=== PATIENT | female | born 1970 | race Caucasian/White ===

== ENCOUNTER 2022-08-08 08:25 | Emergency (ER) | payer BC ==
[2022-08-08 08:38] VITALS: TEMP 97.7
[2022-08-08] MEDS ORDERED: SODIUM CHLORIDE 0.9% 500 ML 500 ML IV STA (09:06)
[2022-08-08] MEDS ORDERED: SODIUM CHLORIDE 0.9% 1,000 ML IV STA (09:06)
[2022-08-08] MEDS ORDERED: HYDROmorphone 0.5 MG/0.5 ML SYRINGE IVP STA (09:06)
[2022-08-08] MEDS ORDERED: ONDANSETRON 4 MG/2 ML VIAL IVP STA (09:06)
[2022-08-08 09:57] LABS: Appearance,Urine Cloudy (Clear); Bacteria,Urine Rare /hpf; Bilirubin,Urine Negative (Negative); Blood,Urine Negative (Negative); Color,Urine Colorless; Glucose,Urine (UA) Negative (Negative); Ketones,Urine Negative (Negative); Leukocyte Esterase,Urine Negative (Negative); Nitrite,Urine Negative (Negative); Protein,Urine Negative (Negative); Specific Gravity,Urine 1.005 (1.001-1.035); Squamous Epithelial Cell,Urine 2 /hpf (0-4); Urobilinogen,Urine <2.0 mg/dL (<2.0); WBC,Urine <1 /hpf (0-5)
[2022-08-08 10:49] LABS: Basophils % (A) 0 %; Eosinophils # (A) 0.1 k/uL (0-0.7); Eosinophils % (A) 2 %; HCT 39.7 % (34.0-46.0); HGB 12.8 gm/dL (11.4-16.0); Lymphocytes # (A) 1.6 k/uL (1.0-4.8); Lymphocytes % (A) 24 %; MCH 27.9 pg (25.0-35.0); MCHC 32.2 g/dL (31.0-37.0); MCV 86.8 fL (80.0-100.0); Mean Platelet Volume 7.7; Monocytes # (A) 0.3 k/uL (0-1.0); Monocytes % (A) 4 %; Neutrophils # (A) 4.7 k/uL (1.3-7.7); Neutrophils % (A) 68 %; Platelet Count 372 k/uL (150-450); RBC 4.57 m/uL (3.80-5.40); RDW 14.4 % (11.5-15.5); WBC 6.9 k/uL (3.8-10.6)
[2022-08-08 11:18] LABS: ALT 55 U/L (4-34); AST 39 U/L (14-36); African American GFR (CKD) >90 (>60 ml/min/1.73 sqM); Albumin 4.3 g/dL (3.5-5.0); Alkaline Phosphatase 133 U/L (38-126); Amylase 74 U/L (30-110); Anion Gap 8 mmol/L; Blood Urea Nitrogen 13 mg/dL (7-17); Calcium 9.4 mg/dL (8.4-10.2); Carbon Dioxide 26 mmol/L (22-30); Chloride 102 mmol/L (98-107); Glucose 83 mg/dL (74-99); Lipase 61 U/L (23-300); Non-African American GFR(CKD) >90 (>60 ml/min/1.73 sqM); Potassium 4.4 mmol/L (3.5-5.1); Sodium 136 mmol/L (137-145); Total Bilirubin 0.3 mg/dL (0.2-1.3); Total Protein 7.2 g/dL (6.3-8.2)
--- NOTE | 2022-08-08 11:40 | ED ---
Abdominal Pain HPI - General Chief Complaint: Abdominal Pain Stated Complaint: back/abd pain Time Seen by Provider: 08/08/22 08:43 Source: patient, RN notes reviewed Mode of arrival: ambulatory Limitations: no limitations - History of Present Illness Initial Comments: 53-year-old female presents emergency Department with multiple complaints. Patient states she was diagnosed with recent covid 19 and was started on Paxil. Patient is answering past which she started developing abdominal, back pain, flank pain, intermittent blurry vision, nausea. Patient states she is concerned that she's had problems with her kidneys in the past. Patient denies any dysuria. Patient's had no fever. Patient states her congestion, cough is cleared out of she has no shortness of breath. Patient does have a history of chronic pancreatitis and is unsure this is causing symptoms. - Related Data Allergies Allergy/AdvReac Type Severity Reaction Status Date / Time meperidine [From Demerol] Allergy Rash/Hives Verified 08/08/22 08:39 Review of Systems ROS Statement: Those systems with pertinent positive or pertinent negative responses have been documented in the HPI. ROS Other: All systems not noted in ROS Statement are negative. Past Medical History Past Medical History: No Reported History History of Any Multi-Drug Resistant Organisms: None Reported Past Surgical History: Section, Cholecystectomy, Hysterectomy, Orthopedic Surgery Additional Past Surgical History / Comment(s): Gastic Bypass Past Psychological History: No Psychological Hx Reported Smoking Status: Never smoker Past Alcohol Use History: None Reported Past Drug Use History: None Reported General Exam Limitations: no limitations General appearance: alert, in no apparent distress Head exam: Present: atraumatic, normocephalic, normal inspection Eye exam: Present: normal appearance, PERRL, EOMI. Absent: scleral icterus, conjunctival injection, periorbital swelling ENT exam: Present: normal exam, normal oropharynx, mucous membranes moist Neck exam: Present: normal inspection, full ROM. Absent: tenderness, meningismus, lymphadenopathy Respiratory exam: Present: normal lung sounds bilaterally. Absent: respiratory distress, wheezes, rales, rhonchi, stridor Cardiovascular Exam: Present: regular rate, normal rhythm, normal heart sounds. Absent: systolic murmur, diastolic murmur, rubs, gallop, clicks GI/Abdominal exam: Present: soft, tenderness, normal bowel sounds. Absent: distended, guarding, rebound, rigid Back exam: Present: CVA tenderness (R), CVA tenderness (L) Neurological exam: Present: alert, oriented X3, CN II-XII intact, reflexes norm al. Absent: motor sensory deficit Psychiatric exam: Present: normal affect, normal mood Course Vital Signs 08/08/22 08/08/22 08:34 11:05 Temperature 97.7 F Pulse Rate 74 74 Respiratory 20 16 Rate Blood Pressure 177/104 177/91 O2 Sat by Pulse 97 100 Oximetry Medical Decision Making - Medical Decision Making Was pt. sent in by a medical professional or institution (, JULY, PATIENT ACCESS, urgent care, hospital, or custodial...) When possible be specific @ -No Did you speak to anyone other than the patient for history (EMS, parent, family, police, friend...)? What history was obtained from this source @ -No Did you review nursing and triage notes (agree or disagree)? Why? @ -I reviewed and agree with nursing and triage notes Were old charts reviewed (outside hosp., previous admission, EMS record, old EKG, old radiological studies, urgent care reports/EKG's, custodial records)? Report findings @ -No old charts were reviewed Differential Diagnosis (chest pain, altered mental status, abdominal pain women, abdominal pain men, vaginal bleeding, weakness, fever, dyspnea, syncope, headache, dizziness, GI bleed, back pain, seizure, CVA, palpatations, mental health, musculoskeletal)? @ -Differential Weakness: Hypoglycemia, shock, sepsis, hyponatremia, anemia, infection, [place], ETOH, adverse medicine reaction, overdose, stroke, this is not meant to be an all-inclusive list.e EKG interpreted by me (3pts min.). @ -Non- X-rays interpreted by me (1pt min.). @ -None done CT interpreted by me (1pt min.). @ -None done U/S interpreted by me (1pt. min.). @ -None done What testing was considered but not performed or refused? (CT, X-rays, U/S, labs)? Why? @ -None What meds were considered but not given or refused? Why? @ -None Did you discuss the management of the patient with other professionals (professionals i.e. , JULY, PATIENT ACCESS, lab, RT, psych nurse, social sciences instructor, printmaker, teacher, ground intelligence officer, major case detective)? Give summary @ -No Was smoking cessation discussed for >3mins.? @ -No Was critical care preformed (if so, how long)? @ -No Were there social determinants of health that impacted care today? How? (Homelessness, low income, unemployed, alcoholism, drug addiction, transportation, low edu. Level, literacy, decrease access to med. care, penitentiary, rehab)? @ -No Was there de-escalation of care discussed even if they declined (Discuss DNR or withdrawal of care, Hospice)? DNR status @ -No What co-morbidities impacted this encounter? (DM, HTN, Smoking, COPD, CAD, Cancer, CVA, ARF, Chemo, Hep., AIDS, mental health diagnosis, sleep apnea, morbid obesity)? @ -Chronic pancreatitis prior renal disease Was patient admitted / discharged? Hospital course, mention meds given and r oute, prescriptions, significant lab abnormalities, going to OR and other pertinent info. @ -Discharge patient symptoms more likely related to medication reaction as it started after taking Paxil bid. Patient is currently stable patient did have mild hypertension. Patient has no neurological deficits. Patient had. The lab showing mild transaminitis so this is been ongoing after cholecystectomy. Undiagnosed new problem with uncertain prognosis? @ -No Drug Therapy requiring intensive monitoring for toxicity (Heparin, Nitro, Insulin, Cardizem)? @ -No Were any procedures done? @ -No Diagnosis/symptom? @ -Medication reaction Acute, or Chronic, or Acute on Chronic? @ -Acute Uncomplicated (without systemic symptoms) or Complicated (systemic symptoms)? @ -Uncomplicated Side effects of treatment? @ -No Exacerbation, Progression, or Severe Exacerbation? @ -No Poses a threat to life or bodily function? How? (Chest pain, [place], [place], pneumonia, PE, COPD, DKA, ARF, appy, cholecystitis, CVA, Diverticulitis, Homicidal, Suicidal, threat to staff... and all critical care pts) @ -No - Lab Data Result diagrams: 08/08/22 09:13 08/08/22 09:13 Lab Results 08/08/22 08/08/22 08/08/22 Range/Units 09:13 09:13 09:13 WBC 6.9 (3.8-10.6) k/uL RBC 4.57 (3.80-5.40) m/uL Hgb 12.8 (11.4-16.0) gm/dL Hct 39.7 (34.0-46.0) % MCV 86.8 (80.0-100.0) fL MCH 27.9 (25.0-35.0) pg MCHC 32.2 (31.0-37.0) g/dL RDW 14.4 (11.5-15.5) % Plt Count 372 (150-450) k/uL MPV 7.7 Neutrophils % 68 % Lymphocytes % 24 % Monocytes % 4 % Eosinophils % 2 % Basophils % 0 % Neutrophils # 4.7 (1.3-7.7) k/uL Lymphocytes # 1.6 (1.0-4.8) k/uL Monocytes # 0.3 (0-1.0) k/uL Eosinophils # 0.1 (0-0.7) k/uL Basophils # 0.0 (0-0.2) k/uL Sodium 136 L (137-145) mmol/L Potassium 4.4 (3.5-5.1) mmol/L Chloride 102 (98-107) mmol/L Carbon Dioxide 26 (22-30) mmol/L Anion Gap 8 mmol/L BUN 13 (7-17) mg/dL Creatinine 0.74 (0.52-1.04) mg/dL Est GFR (CKD-EPI)AfAm >90 (>60 ml/min/1.73 sqM) Est GFR (CKD-EPI)NonAf >90 (>60 ml/min/1.73 sqM) Glucose 83 (74-99) mg/dL Plasma Lactic Acid Blake (0.7-2.0) mmol/L Calcium 9.4 (8.4-10.2) mg/dL Total Bilirubin 0.3 (0.2-1.3) mg/dL AST 39 H (14-36) U/L ALT 55 H (4-34) U/L Alkaline Phosphatase 133 H (38-126) U/L Total Protein 7.2 (6.3-8.2) g/dL Albumin 4.3 (3.5-5.0) g/dL Amylase 74 (30-110) U/L Lipase 61 (23-300) U/L Urine Color Colorless Urine Appearance Cloudy H (Clear) Urine pH 5.0 (5.0-8.0) Ur Specific [place] 1.005 (1.001-1.035) Urine Protein Negative (Negative) Urine Glucose (UA) Negative (Negative) Urine Ketones Negative (Negative) Urine Blood Negative (Negative) Urine Nitrite Negative (Negative) Urine Bilirubin Negative (Negative) Urine Urobilinogen <2.0 (<2.0) mg/dL Ur Leukocyte Esterase Negative (Negative) Urine WBC <1 (0-5) /hpf Ur Squamous Epith Cells 2 (0-4) /hpf Urine Bacteria Rare H (None) /hpf 08/08/22 Range/Units 09:13 WBC (3.8-10.6) k/uL RBC (3.80-5.40) m/uL Hgb (11.4-16.0) gm/dL Hct (34.0-46.0) % MCV (80.0-100.0) fL MCH (25.0-35.0) pg MCHC (31.0-37.0) g/dL RDW (11.5-15.5) % Plt Count (150-450) k/uL MPV Neutrophils % % Lymphocytes % % Monocytes % % Eosinophils % % Basophils % % Neutrophils # (1.3-7.7) k/uL Lymphocytes # (1.0-4.8) k/uL Monocytes # (0-1.0) k/uL Eosinophils # (0-0.7) k/uL Basophils # (0-0.2) k/uL Sodium (137-145) mmol/L Potassium (3.5-5.1) mmol/L Chloride (98-107) mmol/L Carbon Dioxide (22-30) mmol/L Anion Gap mmol/L BUN (7-17) mg/dL Creatinine (0.52-1.04) mg/dL Est GFR (CKD-EPI)AfAm (>60 ml/min/1.73 sqM) Est GFR (CKD-EPI)NonAf (>60 ml/min/1.73 sqM) Glucose (74-99) mg/dL Plasma Lactic Acid Blake 0.9 (0.7-2.0) mmol/L Calcium (8.4-10.2) mg/dL Total Bilirubin (0.2-1.3) mg/dL AST (14-36) U/L ALT (4-34) U/L Alkaline Phosphatase (38-126) U/L Total Protein (6.3-8.2) g/dL Albumin (3.5-5.0) g/dL Amylase (30-110) U/L Lipase (23-300) U/L Urine Color Urine Appearance (Clear) Urine pH (5.0-8.0) Ur Specific [place] (1.001-1.035) Urine Protein (Negative) Urine Glucose (UA) (Negative) Urine Ketones (Negative) Urine Blood (Negative) Urine Nitrite (Negative) Urine Bilirubin (Negative) Urine Urobilinogen (<2.0) mg/dL Ur Leukocyte Esterase (Negative) Urine WBC (0-5) /hpf Ur Squamous Epith Cells (0-4) /hpf Urine Bacteria (None) /hpf Disposition Clinical Impression: Abdominal pain, Back pain, COVID, Medication reaction Disposition: HOME SELF-CARE Condition: Stable Instructions (If sedation given, give patient instructions): General Allergic Reaction (ED) Additional Instructions: Please return to the Emergency Department if symptoms worsen or any other concerns. Is patient prescribed a controlled substance at d/c from ED?: No Referrals: Rene Torres DO [Primary Care Provider] - 1-2 days Time of Disposition: 11:40
[2022-08-08 12:16] VITALS: BP 178/92; PULSE 69; RESP 18
== END 2022-08-08 12:10 | disposition home or self-care (01) ==
LOC: EC 08:25
DX: U07.1 COVID-19 (principal); R10.9 Unspecified abdominal pain; T43.225A Adverse effect of selective serotonin reuptake inhibitors, initial encounter; Z88.8 Allergy status to other drugs, medicaments and biological substances
CPT/HCPCS: 36415; 93005; 80053; 82150; 83605; 83690; 85025; 81001; 99284; 96374; 96375; 96361; J2405; J1170

== ENCOUNTER 2022-08-10 19:00 | Inpatient (IN) | payer BC ==
[2022-08-10] MEDS ORDERED: KETOROLAC 15 MG/ML 1 ML VIAL IVP STA (19:26)
[2022-08-10] MEDS ORDERED: SODIUM CHLORIDE 0.9% 1,000 ML IV STA (19:26)
[2022-08-10] MEDS ORDERED: HYDROmorphone 0.5 MG/0.5 ML SYRINGE IVP STA ×2 (19:27→20:31)
--- NOTE | 2022-08-10 20:10 | ED ---
Abdominal Pain HPI - General Chief Complaint: Abdominal Pain Stated Complaint: Abd/Back Pain Time Seen by Provider: 08/10/22 19:18 Source: patient, family, RN notes reviewed Mode of arrival: ambulatory Limitations: no limitations - History of Present Illness Initial Comments: This is a 52-year-old female who presents to the emergency department for abdom inal pain. Patient was evaluated here 2 days ago for epigastric pain with radiation into the back. States that the symptoms have since worsened. She has a history of chronic pancreatitis and states that this feels like a flareup to her. Believes that this was triggered by starting Paxlovid for COVID-19 infection. She did have nausea yesterday but has otherwise been fine. Denies any constipation or diarrhea. Pain is not controlled with ibuprofen and Tylenol at home. She has not had a pancreatitis flare up in several years. Denies any fevers, chills, sore throat, cough, dyspnea, chest pain, palpitations, diarrhea, or headaches. MD Complaint: abdominal pain Location: epigastric Radiation: back - Related Data Home Medications Medication Instructions Recorded Confirmed Butalb/Acetaminophen/Caffeine 1 cap PO Q6H PRN 08/10/22 08/10/22 [Fioricet 50-300-40 mg Capsule] Galcanezumab-Gnlm [Emgality Pen] 120 mg SQ Q30D 08/10/22 08/10/22 Omeprazole 20 mg PO DAILY 08/10/22 08/10/22 Ondansetron Odt [Zofran Odt] 4 mg PO Q4H PRN 08/10/22 08/10/22 tiZANidine [Zanaflex] 4 mg PO DAILY 08/10/22 08/10/22 tiZANidine [Zanaflex] 8 mg PO HS 08/10/22 08/10/22 Allergies Allergy/AdvReac Type Severity Reaction Status Date / Time meperidine [From Demerol] Allergy Red Face & Verified 08/10/22 21:01 Itching all over Review of Systems ROS Statement: Those systems with pertinent positive or pertinent negative responses have been documented in the HPI. ROS Other: All systems not noted in ROS Statement are negative. Past Medical History Past Medical History: GERD/Reflux Additional Past Medical History / Comment(s): chronic panceratitis, IBS, Gastric Ulcer, hypercalcemia History of Any Multi-Drug Resistant Organisms: None Reported Past Surgical History: Bariatric Surgery, Section, Cholecystectomy, Hysterectomy, Orthopedic Surgery Additional Past Surgical History / Comment(s): Gastic Bypass, Kidney Surgery Past Psychological History: No Psychological Hx Reported Smoking Status: Never smoker Past Alcohol Use History: None Reported Past Drug Use History: None Reported General Exam Limitations: no limitations General appearance: alert, in distress Head exam: Present: atraumatic, normocephalic, normal inspection Respiratory exam: Present: normal lung sounds bilaterally. Absent: respiratory distress, wheezes, rales, rhonchi, stridor Cardiovascular Exam: Present: regular rate, normal rhythm, normal heart sounds. Absent: systolic murmur, diastolic murmur, rubs, gallop, clicks GI/Abdominal exam: Present: soft, tenderness (epigastric), normal bowel sounds. Absent: distended Back exam: Absent: CVA tenderness (R), CVA tenderness (L) Neurological exam: Present: alert, oriented X3, CN II-XII intact Psychiatric exam: Present: normal affect, normal mood Skin exam: Present: warm, dry, intact, normal color. Absent: rash Course Vital Signs 08/10/22 08/10/22 08/10/22 19:02 21:48 23:31 Temperature 98.1 F Pulse Rate 86 74 73 Respiratory 20 18 16 Rate Blood Pressure 164/97 160/93 147/92 O2 Sat by Pulse 100 98 97 Oximetry Medical Decision Making - Medical Decision Making This is a 52-year-old female who presents to the emergency department for abdominal pain. Was pt. sent in by a medical professional or institution? @ -No Did you speak to anyone other than the patient for history? @ -Her Did you review nursing and triage notes? @ -Yes, and I agree, it is accurate with regards to the patient's symptoms. Were old charts reviewed? @ -No Differential Diagnosis? @ -Differential Abdominal Pain Women: Appendicitis, diverticulosis, ischemic bowel, pancreatitis, hepatitis, UTI, gastroenteritis, AAA, incarcerated hernia, bowel obstruction, constipation, inflammatory bowel, hepatitis, peptic ulcer disease, splenic infarction, perforated viscus, vulvitis, ovarian torsion, PID, kidney stone, placenta abruption, this is not meant to be an all-inclusive list EKG interpreted by me (3pts min.)? @ -Sinus rhythm. Ventricular rate 72 bpm, PA interval 195 ms, QRS duration 77 ms, QTC [address] interpreted by me (1pt min.)? @ -Computed tomography scan of the abdomen and pelvis obtained. My interpretation is advised no evidence of bowel wall thickening, free air, or ureteral calculus. What testing was considered but not performed? (CT, X-rays, U/S, labs)? Why? @ -None What meds were considered but not given? Why? @ -None Did you discuss the management of the patient with other professionals? @ -Yes, Dr. Peres, general surgery, regarding the free air in the biliary tree seen on the CT scan. He advised that when patients have had an ERCP in the past, air will remain there permanently and is not of concern in this case. I then spoke with Kirk Bustamnate with [facility] who accepts the patient for admission. Did you reconcile home meds? @ -Yes Was smoking cessation discussed for >3mins.? @ -No Was critical care preformed (if so, how long)? @ -No Were there social determinants of health that impacted care today? How? (Homelessness, low income, unemployed, alcoholism, drug addiction, transportation, low edu. Level, literacy, decrease access to med. care, shelter, rehab)? @ -No Was there de-escalation of care discussed even if they declined? (Discuss DNR or withdrawal of care, Hospice)? @ -No What co-morbidities impacted this encounter? (DM, HTN, Smoking, COPD, CAD, Cancer, CVA, Hep., AIDS, mental health diagnosis, sleep apnea, morbid obesity)? @ -Chronic pancreatitis, GERD, IBS Was patient admitted / discharged? @ -Admitted. Lab work obtained and found to be nonactionable. Computed tomography scan of the abdomen and pelvis obtained. This revealed concerns for air in the biliary tree. Patient does have a history of cholecystectomy and several ERCPs 30 years ago. Case discussed with Dr. Peres, general surgery, who advised that in patients who have had ERCPs in the past, free air is expected to remain in the biliary tree permanently and is not of concern. Patient required multiple doses of Dilaudid in order to get her pain under control. Multiple doses of nausea medication were required as well. We did try a dose of oral [place] to see the patient could be discharged home with pain medication. States that the [place] did not have any effect on her pain whatsoever. Patient subsequently admitted to medicine for intractable pain and chronic pancreatitis. Undiagnosed new problem with uncertain prognosis? @ -None Drug Therapy requiring intensive monitoring for toxicity (Heparin, Nitro, Insulin, Cardizem)? @ -None Were any procedures done? @ -None Diagnosis/symptom? @ -Intractable abdominal pain Acute, or Chronic, or Acute on Chronic? @ -Acute Uncomplicated (without systemic symptoms) or Complicated (systemic symptoms)? @ -Complicated Side effects of treatment? @ -None Exacerbation, Progression, or Severe Exacerbation] @ -Not applicable Poses a threat to life or bodily function? @ -Yes Diagnosis/symptom? @ -Chronic pancreatitis Acute, or Chronic, or Acute on Chronic? @ -Acute on chronic Uncomplicated (without systemic symptoms) or Complicated (systemic symptoms)? @ -Complicated Side effects of treatment? @ -None Exacerbation, Progression, or Severe Exacerbation] @ -Severe exacerbation Poses a threat to life or bodily function? @ -Yes This case was discussed in detail with the attending ED physician, Dr. Chavez. Presentation, findings, and treatment plan discussed in detail as well. - Lab Data Result diagrams: 08/10/22 19:59 08/10/22 19:59 Lab Results 08/10/22 08/10/22 08/10/22 Range/Units 19:59 19:59 19:59 WBC 5.7 (3.8-10.6) k/uL RBC 4.12 (3.80-5.40) m/uL Hgb 11.6 (11.4-16.0) gm/dL Hct 35.9 (34.0-46.0) % MCV 87.3 (80.0-100.0) fL MCH 28.1 (25.0-35.0) pg MCHC 32.2 (31.0-37.0) g/dL RDW 14.4 (11.5-15.5) % Plt Count 340 (150-450) k/uL MPV 8.1 Neutrophils % 60 % Lymphocytes % 29 % Monocytes % 8 % Eosinophils % 1 % Basophils % 1 % Neutrophils # 3.4 (1.3-7.7) k/uL Lymphocytes # 1.6 (1.0-4.8) k/uL Monocytes # 0.4 (0-1.0) k/uL Eosinophils # 0.1 (0-0.7) k/uL Basophils # 0.0 (0-0.2) k/uL Sodium 139 (137-145) mmol/L Potassium 4.1 (3.5-5.1) mmol/L Chloride 103 (98-107) mmol/L Carbon Dioxide 28 (22-30) mmol/L Anion Gap 8 mmol/L BUN 13 (7-17) mg/dL Creatinine 0.73 (0.52-1.04) mg/dL Est GFR (CKD-EPI)AfAm >90 (>60 ml/min/1.73 sqM) Est GFR (CKD-EPI)NonAf >90 (>60 ml/min/1.73 sqM) Glucose 66 L (74-99) mg/dL Plasma Lactic Acid Blake (0.7-2.0) mmol/L Calcium 9.2 (8.4-10.2) mg/dL Total Bilirubin 0.2 (0.2-1.3) mg/dL AST 30 (14-36) U/L ALT 40 H (4-34) U/L Alkaline Phosphatase 102 (38-126) U/L Troponin I (0.000-0.034) ng/mL Total Protein 7.2 (6.3-8.2) g/dL Albumin 4.2 (3.5-5.0) g/dL Amylase 60 (30-110) U/L Lipase 48 (23-300) U/L Urine Color Colorless Urine Appearance Clear (Clear) Urine pH 5.0 (5.0-8.0) Ur Specific [place] 1.006 (1.001-1.035) Urine Protein Negative (Negative) Urine Glucose (UA) Negative (Negative) Urine Ketones Negative (Negative) Urine Blood Negative (Negative) Urine Nitrite Negative (Negative) Urine Bilirubin Negative (Negative) Urine Urobilinogen <2.0 (<2.0) mg/dL Ur Leukocyte Esterase Negative (Negative) 08/10/22 08/10/22 Range/Units 19:59 19:59 WBC (3.8-10.6) k/uL RBC (3.80-5.40) m/uL Hgb (11.4-16.0) gm/dL Hct (34.0-46.0) % MCV (80.0-100.0) fL MCH (25.0-35.0) pg MCHC (31.0-37.0) g/dL RDW (11.5-15.5) % Plt Count (150-450) k/uL MPV Neutrophils % % Lymphocytes % % Monocytes % % Eosinophils % % Basophils % % Neutrophils # (1.3-7.7) k/uL Lymphocytes # (1.0-4.8) k/uL Monocytes # (0-1.0) k/uL Eosinophils # (0-0.7) k/uL Basophils # (0-0.2) k/uL Sodium (137-145) mmol/L Potassium (3.5-5.1) mmol/L Chloride (98-107) mmol/L Carbon Dioxide (22-30) mmol/L Anion Gap mmol/L BUN (7-17) mg/dL Creatinine (0.52-1.04) mg/dL Est GFR (CKD-EPI)AfAm (>60 ml/min/1.73 sqM) Est GFR (CKD-EPI)NonAf (>60 ml/min/1.73 sqM) Glucose (74-99) mg/dL Plasma Lactic Acid Blake 0.9 (0.7-2.0) mmol/L Calcium (8.4-10.2) mg/dL Total Bilirubin (0.2-1.3) mg/dL AST (14-36) U/L ALT (4-34) U/L Alkaline Phosphatase (38-126) U/L Troponin I <0.012 (0.000-0.034) ng/mL Total Protein (6.3-8.2) g/dL Albumin (3.5-5.0) g/dL Amylase (30-110) U/L Lipase (23-300) U/L Urine Color Urine Appearance (Clear) Urine pH (5.0-8.0) Ur Specific [place] (1.001-1.035) Urine Protein (Negative) Urine Glucose (UA) (Negative) Urine Ketones (Negative) Urine Blood (Negative) Urine Nitrite (Negative) Urine Bilirubin (Negative) Urine Urobilinogen (<2.0) mg/dL Ur Leukocyte Esterase (Negative) - Radiology Data Radiology results: report reviewed, image reviewed Disposition Clinical Impression: Chronic pancreatitis, Intractable abdominal pain Disposition: ADMITTED IP TO THIS HOSP
[2022-08-10 20:37] LABS: Appearance,Urine Clear (Clear); Bilirubin,Urine Negative (Negative); Blood,Urine Negative (Negative); Color,Urine Colorless; Glucose,Urine (UA) Negative (Negative); Ketones,Urine Negative (Negative); Leukocyte Esterase,Urine Negative (Negative); Nitrite,Urine Negative (Negative); Protein,Urine Negative (Negative); Specific Gravity,Urine 1.006 (1.001-1.035); Urobilinogen,Urine <2.0 mg/dL (<2.0)
[2022-08-10 20:45] LABS: ALT 40 U/L (4-34); AST 30 U/L (14-36); African American GFR (CKD) >90 (>60 ml/min/1.73 sqM); Albumin 4.2 g/dL (3.5-5.0); Alkaline Phosphatase 102 U/L (38-126); Amylase 60 U/L (30-110); Anion Gap 8 mmol/L; Blood Urea Nitrogen 13 mg/dL (7-17); Calcium 9.2 mg/dL (8.4-10.2); Carbon Dioxide 28 mmol/L (22-30); Chloride 103 mmol/L (98-107); Glucose 66 mg/dL (74-99); Lipase 48 U/L (23-300); Non-African American GFR(CKD) >90 (>60 ml/min/1.73 sqM); Potassium 4.1 mmol/L (3.5-5.1); Sodium 139 mmol/L (137-145); Total Bilirubin 0.2 mg/dL (0.2-1.3); Total Protein 7.2 g/dL (6.3-8.2)
[2022-08-10 20:46] LABS: Basophils % (A) 1 %; Eosinophils # (A) 0.1 k/uL (0-0.7); Eosinophils % (A) 1 %; HCT 35.9 % (34.0-46.0); HGB 11.6 gm/dL (11.4-16.0); Lymphocytes # (A) 1.6 k/uL (1.0-4.8); Lymphocytes % (A) 29 %; MCH 28.1 pg (25.0-35.0); MCHC 32.2 g/dL (31.0-37.0); MCV 87.3 fL (80.0-100.0); Mean Platelet Volume 8.1; Monocytes # (A) 0.4 k/uL (0-1.0); Monocytes % (A) 8 %; Neutrophils # (A) 3.4 k/uL (1.3-7.7); Neutrophils % (A) 60 %; Platelet Count 340 k/uL (150-450); RBC 4.12 m/uL (3.80-5.40); RDW 14.4 % (11.5-15.5); WBC 5.7 k/uL (3.8-10.6)
--- NOTE | 2022-08-10 20:59 | CT ---
EXAMINATION TYPE: CT abdomen pelvis w con DATE OF EXAM: 08/10/2022 COMPARISON: None HISTORY: abdominal and back pain CT DLP: 685.9 mGycm Automated exposure control for dose reduction was used. CONTRAST: Performed with IV Contrast, patient injected with 100 mL of Isovue 370. Images obtained from the diaphragm to the floor of the pelvis with IV contrast. The lung bases are clear. No pleural effusion. Heart size is normal. No pericardial effusion. There i s gastric bariatric surgery. There is air in the anterior biliary tree. Bile ducts are not dilated. T here are clips from cholecystectomy. Spleen is intact. No sign of pancreatic mass. There is no adrenal mass. Kidneys show normal size and contour. No hydronephrosis. There is 2 cm cortical cyst anterior right kidney. There is 1 cm cortical cyst lower pole right kidney. No hydronephrosis. Delayed images show normal renal excretion. No retr operitoneal adenopathy. No inguinal hernia. No free fluid in the pelvis. No pelvic mass. The lumbar vertebra have normal spacing and alignment. Posterior elements are intact. No compression fracture the bony pelvis is intact. The hip joints are intact there is hysterectomy. There are surgic al clips probably from appendectomy. Appendix not seen. There is no mesenteric edema. No ascites or f ree air. No sign of a bowel obstruction. There is 3.5 cm rounded fluid density anterior to the right hip joint and could be a synovial cyst. IMPRESSION: No acute abnormality of the abdomen and pelvis. Previous surgery. Air refluxed into the biliary tree. Cystic mass anterior to the right hip consistent with a synovial cyst.
[2022-08-10] MEDS ORDERED: ONDANSETRON 4 MG/2 ML VIAL IVP STA (21:31)
[2022-08-10] MEDS ORDERED: HYDROcodone/APAP 7.5-325MG 1 EACH TAB PO ONE (21:52)
[2022-08-10] MEDS ORDERED: HYDROmorphone 1 MG/ML 1 ML SYRINGE IVP STA (23:18)
[2022-08-10] MEDS ORDERED: METOCLOPRAMIDE 5 MG/ML 2 ML VIAL IVP STA (23:18)
[2022-08-10] MEDS ORDERED: HYDROmorphone 0.5 MG/0.5 ML SYRINGE IVP PRN (23:18)
[2022-08-10] MEDS ORDERED: NALOXONE 0.4 MG/ML 1 ML VIAL IV PRN (23:18)
[2022-08-10] MEDS: SODIUM CHLORIDE 0.9% 1,000 ML IV SCH (23:31)
[2022-08-11] MEDS: METOCLOPRAMIDE 5 MG/ML 2 ML VIAL IVP PRN ×3 (03:26→23:30)
[2022-08-11] MEDS: HYDROmorphone 1 MG/ML 1 ML SYRINGE IVP PRN ×4 (03:57→20:51)
[2022-08-11] MEDS: ONDANSETRON 4 MG/2 ML VIAL IVP PRN ×2 (06:21→15:38)
[2022-08-11] MEDS: KETOROLAC 15 MG/ML 1 ML VIAL IVP PRN ×2 (06:21→18:48)
[2022-08-11] MEDS: SODIUM CHLORIDE 0.9% 1,000 ML IV SCH ×3 (06:24→20:46)
[2022-08-11] MEDS: tiZANidine 4 MG TAB PO SCH ×2 (08:12→20:46)
[2022-08-11] MEDS: PANTOPRAZOLE 40 MG/10 ML VIAL IVP SCH (08:12)
--- NOTE | 2022-08-11 13:15 | P.HPIM ---
History of Present Illness 52-year-old the female came in with complaints of severe epigastric abdominal pain nonradiating. Patient had a computed tomography scan of the abdomen did not show any significant abnormality patient had a cholecystectomy in the past and patient has some air in the bile duct from the previous surgery beyond that nothing was evident. Patient denied any nausea vomiting. Patient is still complaining of abdominal pain though lipase is within normal limits patient was admitted for possible pancreatic that is although there is no biochemical other radiological evidence of that. Patient was started on Protonix here. REVIEW OF SYSTEMS: CONSTITUTIONAL: No fever, no malaise, no fatigue. HEENT: No recent visual problems or hearing problems. Denied any sore throat. CARDIOVASCULAR: No chest pain, orthopnea, PND, no palpitations, no syncope. PULMONARY: No shortness of breath, no cough, no hemoptysis. GASTROINTESTINAL: As mentioned in HPI NEUROLOGICAL: No headaches, no weakness, no numbness. HEMATOLOGICAL: Denies any bleeding or petechiae. GENITOURINARY: Denies any burning micturition, frequency, or urgency. MUSCULOSKELETAL/RHEUMATOLOGICAL: Denies any joint pain, swelling, or any muscle pain. ENDOCRINE: Denies any polyuria or polydipsia. The rest of the 14-point review of systems is negative. PHYSICAL EXAMINATION: GENERAL: The patient is alert and oriented x3, not in any acute distress. Well developed, well nourished. HEENT: Pupils are round and equally reacting to light. EOMI. No scleral icterus. No conjunctival pallor. Normocephalic, atraumatic. No pharyngeal erythema. No thyromegaly. CARDIOVASCULAR: S1 and S2 present. No murmurs, rubs, or gallops. PULMONARY: Chest is clear to auscultation, no wheezing or crackles. ABDOMEN: Soft, nontender, nondistended, normoactive bowel sounds. No palpable organomegaly. MUSCULOSKELETAL: No joint swelling or deformity. EXTREMITIES: No cyanosis, clubbing, or pedal edema. NEUROLOGICAL: Gross neurological examination did not reveal any focal deficits. SKIN: No rashes. Assessment and plan -Abdominal pain etiology is not clear may be gastritis or peptic ulcer disease patient will be discharged on Protonix patient will be started on diet. No evid ence of pancreatitis. -Depression Patient will be discharged with Protonix for week to 10 days Past Medical History Past Medical History: GERD/Reflux Additional Past Medical History / Comment(s): chronic panceratitis, IBS, Gastric Ulcer, hypercalcemia History of Any Multi-Drug Resistant Organisms: None Reported Past Surgical History: Bariatric Surgery, Section, Cholecystectomy, Hysterectomy, Orthopedic Surgery Additional Past Surgical History / Comment(s): Gastic Bypass, Kidney Surgery Past Anesthesia/Blood Transfusion Reactions: No Reported Reaction Past Psychological History: No Psychological Hx Reported Smoking Status: Never smoker Past Alcohol Use History: None Reported Past Drug Use History: None Reported Medications and Allergies Home Medications Medication Instructions Recorded Confirmed Type Butalb/Acetaminophen/Caffeine 1 cap PO Q6H PRN 08/10/22 08/10/22 History [Fioricet 50-300-40 mg Capsule] Galcanezumab-Gnlm [Emgality Pen] 120 mg SQ Q30D 08/10/22 08/10/22 History Ondansetron Odt [Zofran Odt] 4 mg PO Q4H PRN 08/10/22 08/10/22 History tiZANidine [Zanaflex] 4 mg PO DAILY 08/10/22 08/10/22 History tiZANidine [Zanaflex] 8 mg PO HS 08/10/22 08/10/22 History Pantoprazole Sodium [Protonix] 40 mg PO DAILY #10 tab 08/11/22 Rx Allergies Allergy/AdvReac Type Severity Reaction Status Date / Time meperidine [From Demerol] Allergy Red Face & Verified 08/10/22 21:01 Itching all over Physical Exam Vitals: Vital Signs Temp Pulse Pulse Resp BP BP Pulse Ox 08/11/22 11:40 97.3 F L 55 L 16 120/77 97 08/11/22 08:00 97.8 F 58 L 58 H 113/75 97 08/11/22 03:19 97.9 F 70 16 119/70 97 08/10/22 23:58 97.8 F 62 16 113/73 96 08/10/22 23:31 73 16 147/92 97 08/10/22 21:48 74 18 160/93 98 08/10/22 19:02 98.1 F 86 20 164/97 100 Intake and Output 08/10/22 08/11/22 08/11/22 22:59 06:59 14:59 Intake Total 910 Balance 910 Intake: Intake, IV Titration 910 Amount Sodium Chloride 0.9% 1, 910 000 ml @ 130 mls/hr IV . Q7H42M [facility] Rx#:[id number] Other: Weight 58.06 kg 58.06 kg Results CBC & Chem 7: 08/10/22 19:59 08/10/22 19:59 Labs: Abnormal Lab Results - Last 24 Hours (Table) 08/10/22 Range/Units 19:59 Glucose 66 L (74-99) mg/dL ALT 40 H (4-34) U/L Thrombosis Risk Factor Assmnt - Choose All That Apply Any of the Below Risk Factors Present?: Yes Each Factor Represents 1 point: Age 41-60 years, Hx of IBD Other congenital or acquired thrombophilia - If yes, enter type in comment: No Thrombosis Risk Factor Assessment Total Risk Factor Score: 2 Thrombosis Risk Factor Assessment Level: Low Risk
--- NOTE | 2022-08-11 13:15 | P.DS ---
Providers Date of admission: 08/10/22 23:20 Attending physician: Oziel Pate Primary care physician: Rene Torres [place] [facility] Course: Refer to history of present illness for further details Plan - Discharge Summary Discharge Rx Participant: No New Discharge Prescriptions: New Pantoprazole Sodium [Protonix] 40 mg PO DAILY #10 tab Discontinued Omeprazole 20 mg PO DAILY No Action tiZANidine [Zanaflex] 8 mg PO HS Ondansetron Odt [Zofran Odt] 4 mg PO Q4H PRN PRN Reason: Nausea Butalb/Acetaminophen/Caffeine [Fioricet 50-300-40 mg Capsule] 1 cap PO Q6H PRN PRN Reason: Migraine Headache tiZANidine [Zanaflex] 4 mg PO DAILY Galcanezumab-Gnlm [Emgality Pen] 120 mg SQ Q30D Discharge Medication List Butalb/Acetaminophen/Caffeine [Fioricet 50-300-40 mg Capsule] 1 cap PO Q6H PRN 08/10/22 [History] Galcanezumab-Gnlm [Emgality Pen] 120 mg SQ Q30D 08/10/22 [History] Ondansetron Odt [Zofran Odt] 4 mg PO Q4H PRN 08/10/22 [History] tiZANidine [Zanaflex] 4 mg PO DAILY 08/10/22 [History] tiZANidine [Zanaflex] 8 mg PO HS 08/10/22 [History] Pantoprazole Sodium [Protonix] 40 mg PO DAILY #10 tab 08/11/22 [Rx] Follow up Appointment(s)/Referral(s): Rene Torres DO [Primary Care Provider] - 3 Days Discharge Disposition: HOME SELF-CARE
[2022-08-12] MEDS: HYDROmorphone 1 MG/ML 1 ML SYRINGE IVP PRN ×4 (01:00→19:52)
[2022-08-12] MEDS: ONDANSETRON 4 MG/2 ML VIAL IVP PRN ×3 (02:40→18:02)
[2022-08-12] MEDS: SODIUM CHLORIDE 0.9% 1,000 ML IV SCH ×2 (05:25→14:22)
[2022-08-12] MEDS: METOCLOPRAMIDE 5 MG/ML 2 ML VIAL IVP PRN ×2 (07:58→13:38)
[2022-08-12] MEDS: PANTOPRAZOLE 40 MG/10 ML VIAL IVP SCH ×2 (07:58→19:52)
[2022-08-12] MEDS: tiZANidine 4 MG TAB PO SCH ×2 (07:58→21:15)
[2022-08-12] MEDS: KETOROLAC 15 MG/ML 1 ML VIAL IVP PRN (09:31)
[2022-08-12] MEDS ORDERED: LIPASE 20,000/PROTEASE 63,000/AMYLASE 84,000 PO SCH (16:00)
[2022-08-12] MEDS: LIPASE 20,000/PROTEASE 63,000/AMYLASE 84,000 PO SCH (18:57)
[2022-08-12] MEDS: BUTALB/APAP/CAFF 50-325-40MG TAB PO PRN (19:52)
[2022-08-12] MEDS: PROCHLORPERAZINE INJ 10 MG/2 ML VIAL IVP PRN (21:15)
[2022-08-13] MEDS: SODIUM CHLORIDE 0.9% 1,000 ML IV SCH ×2 (01:27→09:32)
[2022-08-13] MEDS: HYDROmorphone 1 MG/ML 1 ML SYRINGE IVP PRN ×2 (01:27→08:34)
[2022-08-13] MEDS: KETOROLAC 15 MG/ML 1 ML VIAL IVP PRN (04:59)
[2022-08-13] MEDS: ONDANSETRON 4 MG/2 ML VIAL IVP PRN (04:59)
--- NOTE | 2022-08-13 05:34 | P.PN ---
Subjective Progress Note Date: 08/12/22 52-year-old the female came in with complaints of severe epigastric abdominal pain nonradiating. Patient had a computed tomography scan of the abdomen did not show any significant abnormality patient had a cholecystectomy in the past and patient has some air in the bile duct from the previous surgery beyond that nothing was evident. Patient denied any nausea vomiting. Patient is still complaining of abdominal pain though lipase is within normal limits patient was admitted for possible pancreatic that is although there is no biochemical other radiological evidence of that. Patient was started on Protonix here. 08/12/2022 Patient is seen and evaluated in follow-up this morning continues to report abdominal pain although still slightly improved from yesterday. Patient continues with severe nausea and has been using Zofran and Reglan with no real relief we'll discontinue Reglan and add Compazine as needed. Will also initiate Creon encourage small frequent meals and encouraged on her intake. Patient denies chest pain or shortness of breath. Patient is afebrile. Again patient continues to report nausea and denies vomiting or dry heaving. Encouraged increase activity as tolerated and will consult pain management as well to discuss possible celiac nerve injection and appreciate input and recommendations. Patient is continuing to require IV pain medications and encouraged oral pain medications with the patient. Review of systems: Constitutional: reports of fatigue, no fever, or chills Cardiovascular: No reports of chest pain or palpitations Respiratory: No reports of shortness of breath or cough GI: reports of continued nausea, no vomiting, or diarrhea : No reports of dysuria or retention Neurovascular: No reports of weakness or numbness All medications have been reviewed Active Medications Acetaminophen/Butalbital/Caffeine (Butalb/Apap/Caff 50-325-40mg Tab) 1 each PO Q6H PRN PRN Reason: Migraine Headache Last Admin: 08/12/22 19:52 Dose: 1 each Lipase/Protease/Amylase (Lipase 20,000/Protease 63,000/Amylase 84,000) 1 each PO AC-BID JOAN Last Admin: 08/12/22 18:57 Dose: 1 each Hydromorphone HCl (Hydromorphone 0.5 Mg/0.5 Ml Syringe) 0.5 mg IVP Q3HR PRN PRN Reason: Moderate Pain (Scale 4 to 6) Hydromorphone HCl (Hydromorphone 1 Mg/Ml 1 Ml Syringe) 1 mg IVP Q3HR PRN PRN Reason: Severe Pain (Scale 7 to 10) Last Admin: 08/13/22 01:27 Dose: 1 mg Sodium Chloride (Saline 0.9%) 1,000 mls @ 100 mls/hr IV .Q10H [facility] Last Admin: 08/13/22 01:27 Dose: 100 mls/hr Ketorolac Tromethamine (Ketorolac 15 Mg/Ml 1 Ml Vial) 15 mg IVP Q6HR PRN PRN Reason: Moderate Pain (Scale 4 to 6) Stop: 08/13/22 23:19 Last Admin: 08/13/22 04:59 Dose: 15 mg Naloxone HCl (Naloxone 0.4 Mg/Ml 1 Ml Vial) 0.2 mg IV Q2M PRN PRN Reason: Opioid Reversal Ondansetron HCl (Ondansetron 4 Mg/2 Ml Vial) 4 mg IVP Q6H PRN PRN Reason: Nausea And Vomiting Last Admin: 08/13/22 04:59 Dose: 4 mg Pantoprazole Sodium (Pantoprazole 40 Mg/10 Ml Vial) 40 mg IVP BID [facility] Last Admin: 08/12/22 19:52 Dose: 40 mg Prochlorperazine Edisylate (Prochlorperazine Inj 10 Mg/2 Ml Vial) 5 mg IVP Q6H PRN PRN Reason: Nausea And Vomiting Last Admin: 08/12/22 21:15 Dose: 5 mg Tizanidine HCl (Tizanidine 4 Mg Tab) 4 mg PO DAILY [facility] Last Admin: 08/12/22 07:58 Dose: 4 mg Tizanidine HCl (Tizanidine 4 Mg Tab) 8 mg PO HS [facility] Last Admin: 08/12/22 21:15 Dose: 8 mg PHYSICAL EXAMINATION: GENERAL: The patient is alert and oriented x3, not in any acute distress. Well developed, well nourished. HEENT: Pupils are round and equally reacting to light. EOMI. No scleral icterus. No conjunctival pallor. Normocephalic, atraumatic. No pharyngeal erythema. No thyromegaly. CARDIOVASCULAR: S1 and S2 present. No murmurs, rubs, or gallops. PULMONARY: Chest is clear to auscultation, no wheezing or crackles. ABDOMEN: Soft, tender on palpation of the mid umbilicus along with left and right lower quadrants, nondistended, normoactive bowel sounds. No palpable organomegaly. MUSCULOSKELETAL: No joint swelling or deformity. EXTREMITIES: No cyanosis, clubbing, or pedal edema. NEUROLOGICAL: Gross neurological examination did not reveal any focal deficits. SKIN: No rashes. Assessment: -Abdominal pain etiology is not clear may be gastritis or peptic ulcer disease -Chronic pancreatitis with normal lab values, history of previous pancreatitis flareup approximately 5 years ago -History of recent positive covid 19 infection and had been taking Paxlovid -Depression -GI prophylaxis -DVT prophylaxis -Full code Plan: Recommend continue with current pain regimen and will consult pain management to discuss options of possible celiac nerve injection or resources to provide the outpatient setting Continue diet and slowly advance as tolerated Will adjust anti-nausea medications as patient continues to report severe nausea Encouraged oral intake with small frequent meals Encouraged increase activity as tolerated Will follow-up with repeat labs Patient will need outpatient follow-up with GI with Possible discharge next 24- 48 hours The impression and plan of care has been dictated by Blanca Cerda, Nurse Practitioner as directed. MD Mario I have performed a history and examination and MDM of this patient, discussed the same with the dictator, and agree with the dictator's assessment and plan as written ,documented as a scribe. Based on total visit time, I have performed more than 50% of the visit. Objective - Vital Signs Vital signs: Vital Signs Temp 97.8 F 08/12/22 07:48 Pulse 65 08/12/22 07:48 Resp 17 08/12/22 07:48 BP 152/71 08/12/22 07:48 Pulse Ox 95 08/12/22 02:35 FiO2 Intake & Output 08/11/22 08/12/22 08/12/22 18:59 06:59 18:59 Intake Total 2000 Output Total 2 Balance -1999 Intake: Intake, IV Titration 1500 Amount Sodium Chloride 0.9% 1, 1500 000 ml @ 130 mls/hr IV . Q7H42M [facility] Rx#:[id number] Oral 500 Output: Emesis 2 Other: Voiding Method Toilet # Voids 3 4 - Labs CBC & Chem 7: 08/10/22 19:59 08/10/22 19:59
[2022-08-13] MEDS: PANTOPRAZOLE 40 MG/10 ML VIAL IVP SCH (08:35)
[2022-08-13] MEDS: LIPASE 20,000/PROTEASE 63,000/AMYLASE 84,000 PO SCH ×2 (08:35→17:48)
[2022-08-13 09:26] LABS: African American GFR (CKD) 115.5 (60.0-200.0); Anion Gap 11.3 mmol/L (10.00-18.00); BUN/Creat Ratio 7.14 Ratio (12.00-20.00); Calcium 9.4 mg/dL (8.7-10.3); Carbon Dioxide 23.7 mmol/L (20.0-27.5); Magnesium 1.5 mg/dL (1.5-2.4); Non-African American GFR(CKD) 99.6 (60.0-200.0); Potassium 4.3 mmol/L (3.5-5.5)
[2022-08-13] MEDS: tiZANidine 4 MG TAB PO SCH ×2 (09:27→20:56)
[2022-08-13] MEDS: PROCHLORPERAZINE INJ 10 MG/2 ML VIAL IVP PRN (09:28)
[2022-08-13] MEDS ORDERED: Magnesium Replacement Protocol 1 EACH MISC MISCELLANE PRN ×2 (12:48→12:49)
--- NOTE | 2022-08-13 13:19 | P.PAINPG ---
Subjective Progress Note Date: 08/14/22 Objective - Vital Signs Vital signs: Vital Signs Temp 98.7 F 08/13/22 07:16 Pulse 72 08/13/22 07:16 Resp 16 08/13/22 07:16 BP 147/87 08/13/22 07:16 Pulse Ox 98 08/13/22 07:16 FiO2 Intake & Output 08/12/22 08/13/22 08/13/22 18:59 06:59 18:59 Intake Total 200 1520 Balance 200 1520 Intake: Intake, IV Titration 1200 Amount Sodium Chloride 0.9% 1, 1200 000 ml @ 100 mls/hr IV . Q10H [facility] Rx#:[id number] Oral 200 320 Other: Voiding Method Toilet # Voids 3 3 # Bowel Movements 1 - Labs CBC & Chem 7: 08/10/22 19:59 08/13/22 06:03 Labs: Abnormal Lab Results - Last 24 Hours (Table) 08/13/22 Range/Units 06:03 BUN 5.0 L (9.0-27.0) mg/dL BUN/Creatinine Ratio 7.14 L (12.00-20.00) Ratio Assessment and Plan Assessment: Patient diagnosed with chronic pancreatitis, she is admitted secondary to [facility] of her symptoms, she she was complaining of severe abdominal pain, she symptoms improved with the current medications, discussed with the patient the option of doing a celiac plexus block, and I explained to her that we can do the block , but I cannot guarantee for her long-term benefit from the block, Plan: Discussed with the patient today (08/14/2022 ) option of doing a celiac plexus block, and explained to her that the block could give only temporary relief, there is no guarantee it will give her longer-term benefit, she reported that the current medication is helping her to control her pain, and she preferr not to do procedure at this point, I recommend to continue the current medication, patient can follow up in the pain clinic as an outpatient , and we can do the block as an outpatient if needed Time with Patient: Less than 30 PQRS Measure Charge Sheet Comment: HISTORY OF PRESENT ILLNESS: 52 yr old female w at side as a referral from Blanca Cerda MD presents today w severe and chronic abdominal pain secondary to chronic pancreatitis for evaluation. Pt states pain level is at 10/10 in intensity, intermittent, localized in the upper abdomen, achy, colicky in character w shooting pain towards the back. Pain has no provocative factors but she believes food provokes it. Pain is alleviated by pain medications and rest. PMH: GERD, Chronic Pancreatitis, IBS PSH: Gastric Bypass Surgery, Section, Renal Surgery, Cholecystectomy, Hysterectomy, Orthopedic Surgery SH: Negative x3 FH: Non contributory All: See list Meds: See list REVIEW OF ORGAN SYSTEMS: CONSTITUTIONAL: No fevers or chills. No recent weight loss. NEUROLOGICAL: + numbness and tingling along the distal extremities. No seizure disorders or headaches. MUSCULOSKELETAL: + pain PSYCHIATRIC: Denies current depression or suicidal thoughts. Physical Examinations : Constitutional : Cooperative , not in acute distress . Neurologic : Cranial nerve II to XII intact. No focal neurological deficits. Psychiatric : alert & oriented x 3. Matching mood & appropriate affect. Judgment & insight intact. Musculoskeletal : Cervical Spine Motor strength in the deltoid and biceps: Normal right side. Normal Left side Motor strength biceps and the wrist extensors: Normal right side . Normal left side Motor strength in the triceps muscle: Normal right side. Normal left side Deep tendon reflexes: Normal at the biceps. Normal at Brachioradialis. Normal at triceps Vertebral body tenderness to deep palpation over Cervical facet loading test: positive bilaterally Spurling test: positive bilaterally Neck distraction test: positive bilaterally Galen sign: positive bilaterally Lumbar spine Motor strength lower extremities ,thigh and legs 5/5 Right side , 5/5 Left side Deep tendon reflexes : Normal Knee Jerk. Normal Ankle Jerk Vertebral body tenderness over Lumbar facet Loading Test: positive Right / positive Left Range of motion of the lumbar spine Flexion 30 degrees, extension 10 degrees Straight Leg Raise test: Left/ Right positive at degree Ventura test: positive right / positive left. Severe tenderness over the Sacroiliac joint on the Right / Left sides Gaenslen test: positive bilaterally Seated flexion test: positive bilaterally. Sacral spine : Severe tenderness over the Sacroiliac joint: right side / left side Range of motion: Flexion of the lumbar spine <60 degrees Range of motion: Extension of the lumbar spine <20 degrees Gaenslen's Test positive Singh's Test positive Ventura test: positive right side / left side Thigh Thrust Test Sacral Thrust Test Assessment/ Plan : Intractable Abdominal Pain secondary to Chronic Pancreatitis. Recommendation of Celiac Nerve Block. May need a series of injections for optimal pain relief. Risks, benefits of procedure discussed and patient verbalized understanding. Denies to aspirin or anti- coagulant use or medical history of diabetes. Protocol for discontinuation/ continuation of medications yue procedure discussed. All questions answered. I have spent greater than 30 minutes on patient care today. Dr Copeland was available by phone for the evaluation of this patient. The time was used to review the medical records including relevant urine studies and Prescription hi story (MAPs), review of the available imaging, evaluation and examination of the patient, coordination of care with the medical staff and if applicable referring physicians, as well as creation of the medical record - Pain Location Abdomen Non-Pharmacological Interventions: Darkened Room, Distraction, Position/Reposition Pharmacological Interventions: PRN Medication Pain Comment: see MAR PQRS Narrative: Blood Pressure [Right Arm] 147/87 Blood Pressure 147/92 Pain Intensity [Abdomen] 8 Pain Intensity 5 Pain Scale Used Numeric (1 - 10) Scale Used Numeric (1 - 10) Home Medications: Ambulatory Orders Butalb/Acetaminophen/Caffeine [Fioricet 50-300-40 mg Capsule] 1 cap PO Q6H PRN 08/10/22 Galcanezumab-Gnlm [Emgality Pen] 120 mg SQ Q30D 08/10/22 Ondansetron Odt [Zofran Odt] 4 mg PO Q4H PRN 08/10/22 tiZANidine [Zanaflex] 4 mg PO DAILY 08/10/22 tiZANidine [Zanaflex] 8 mg PO HS 08/10/22 Pantoprazole Sodium [Protonix] 40 mg PO DAILY #10 tab 08/11/22 Rosuvastatin Calcium [Crestor] 40 mg PO AC-BID #30 tablet 08/11/22 Controlled Substance Measures - Controlled Substance Measures Is patient prescribed a controlled substance at discharge?: No
[2022-08-13] MEDS ORDERED: PROCHLORPERAZINE 5 MG TAB PO PRN (14:33)
[2022-08-13] MEDS: ONDANSETRON ODT 4 MG TAB PO PRN (14:47)
[2022-08-13] MEDS: traMADol 50 MG TAB PO PRN (14:47)
[2022-08-13] MEDS ORDERED: MAGNESIUM OXIDE 400 MG TAB PO STA (14:50)
[2022-08-13] MEDS: MAGNESIUM SULFATE-D5W PMX 1 GM in DEXTROSE/WATER 1 100ML.BAG IVPB SCH ×2 (14:51→15:13)
[2022-08-13] MEDS: BUTALB/APAP/CAFF 50-325-40MG TAB PO PRN (18:46)
[2022-08-13] MEDS: HYDROcodone/APAP 5-325MG 1 EACH TAB PO PRN (21:07)
[2022-08-14] MEDS: traMADol 50 MG TAB PO PRN ×2 (00:27→09:01)
[2022-08-14] MEDS: ONDANSETRON ODT 4 MG TAB PO PRN ×2 (00:28→09:01)
[2022-08-14] MEDS: HYDROcodone/APAP 5-325MG 1 EACH TAB PO PRN ×2 (03:20→12:35)
[2022-08-14] MEDS: BUTALB/APAP/CAFF 50-325-40MG TAB PO PRN (04:41)
--- NOTE | 2022-08-14 05:56 | P.PN ---
Subjective Progress Note Date: 08/13/22 52-year-old the female came in with complaints of severe epigastric abdominal pain nonradiating. Patient had a computed tomography scan of the abdomen did not show any significant abnormality patient had a cholecystectomy in the past and patient has some air in the bile duct from the previous surgery beyond that nothing was evident. Patient denied any nausea vomiting. Patient is still complaining of abdominal pain though lipase is within normal limits patient was admitted for possible pancreatic that is although there is no biochemical other radiological evidence of that. Patient was started on Protonix here. 08/12/2022 Patient is seen and evaluated in follow-up this morning continues to report abdominal pain although still slightly improved from yesterday. Patient continues with severe nausea and has been using Zofran and Reglan with no real relief we'll discontinue Reglan and add Compazine as needed. Will also initiate Creon encourage small frequent meals and encouraged on her intake. Patient denies chest pain or shortness of breath. Patient is afebrile. Again patient continues to report nausea and denies vomiting or dry heaving. Encouraged increase activity as tolerated and will consult pain management as well to discuss possible celiac nerve injection and appreciate input and recommendations. Patient is continuing to require IV pain medications and encouraged oral pain medications with the patient. 08/13/2022 Patient is seen and evaluated in follow-up reports her pain is slightly improved and is tolerating oral intake and the Compazine is more effective in controlling her nausea. Patient does continue nausea although no vomiting. Patient reports to passing gas but no bowel movement as of yet and encouraged increase activity as tolerated. Patient with no IV access and difficult stick at this time we'll transition to oral continue with oral medications. Discussed with the patient as well as nursing about limiting IV Dilaudid and weaning. Will add [place]. Pain management following and planning on celiac nerve block sometime tomorrow. Patient is currently afebrile with no reports of chest pain or shortness of breath noted. Review of systems: Constitutional: reports of fatigue, no fever, or chills Cardiovascular: No reports of chest pain or palpitations Respiratory: No reports of shortness of breath or cough GI: reports of continued nausea although feels improved from yesterday, no vomiting, or diarrhea : No reports of dysuria or retention Neurovascular: No reports of weakness or numbness All medications have been reviewed Active Medications Acetaminophen/Butalbital/Caffeine (Butalb/Apap/Caff 50-325-40mg Tab) 1 each PO Q6H PRN PRN Reason: Migraine Headache Last Admin: 08/14/22 04:41 Dose: 1 each Hydrocodone Bitart/Acetaminophen (Hydrocodone/Apap 5-325mg 1 Each Tab) 1 each PO Q6HR PRN PRN Reason: Pain Last Admin: 08/14/22 03:20 Dose: 1 each Lipase/Protease/Amylase (Lipase 20,000/Protease 63,000/Amylase 84,000) 1 each PO AC-BID JOAN Last Admin: 08/13/22 17:48 Dose: 1 each Hydromorphone HCl (Hydromorphone 0.5 Mg/0.5 Ml Syringe) 0.5 mg IVP Q3HR PRN PRN Reason: Moderate Pain (Scale 4 to 6) Hydromorphone HCl (Hydromorphone 1 Mg/Ml 1 Ml Syringe) 1 mg IVP Q3HR PRN PRN Reason: Severe Pain (Scale 7 to 10) Last Admin: 08/13/22 08:34 Dose: 1 mg Miscellaneous Information (Magnesium Replacement Protocol 1 Each Misc) 1 each MISCELLANE DAILY PRN; Protocol PRN Reason: Per Protocol Naloxone HCl (Naloxone 0.4 Mg/Ml 1 Ml Vial) 0.2 mg IV Q2M PRN PRN Reason: Opioid Reversal Ondansetron HCl (Ondansetron 4 Mg/2 Ml Vial) 4 mg IVP Q6H PRN PRN Reason: Nausea And Vomiting Last Admin: 08/13/22 04:59 Dose: 4 mg Ondansetron HCl (Ondansetron Odt 4 Mg Tab) 4 mg PO Q6H PRN PRN Reason: Nausea Last Admin: 08/14/22 00:28 Dose: 4 mg Pantoprazole Sodium (Pantoprazole 40 Mg Tablet) 40 mg PO AC-BRKFST JOAN Prochlorperazine Edisylate (Prochlorperazine Inj 10 Mg/2 Ml Vial) 5 mg IVP Q6H PRN PRN Reason: Nausea And Vomiting Last Admin: 08/13/22 09:28 Dose: 5 mg Prochlorperazine Maleate (Prochlorperazine 5 Mg Tab) 5 mg PO Q8HR PRN PRN Reason: Nausea And Vomiting Tizanidine HCl (Tizanidine 4 Mg Tab) 4 mg PO DAILY [facility] Last Admin: 08/13/22 09:27 Dose: 4 mg Tizanidine HCl (Tizanidine 4 Mg Tab) 8 mg PO HS [facility] Last Admin: 08/13/22 20:56 Dose: 8 mg Tramadol HCl (Tramadol 50 Mg Tab) 50 mg PO TID PRN PRN Reason: Pain Last Admin: 08/14/22 00:27 Dose: 50 mg PHYSICAL EXAMINATION: GENERAL: The patient is alert and oriented x3, not in any acute distress. Well d eveloped, well nourished. HEENT: Pupils are round and equally reacting to light. EOMI. No scleral icterus. No conjunctival pallor. Normocephalic, atraumatic. No pharyngeal erythema. No thyromegaly. CARDIOVASCULAR: S1 and S2 present. No murmurs, rubs, or gallops. PULMONARY: Chest is clear to auscultation, no wheezing or crackles. ABDOMEN: Soft, tender on palpation of the mid umbilicus along with left and right lower quadrants, nondistended, normoactive bowel sounds. No palpable organomegaly. MUSCULOSKELETAL: No joint swelling or deformity. EXTREMITIES: No cyanosis, clubbing, or pedal edema. NEUROLOGICAL: Gross neurological examination did not reveal any focal deficits. SKIN: No rashes. Assessment: -Abdominal pain etiology is not clear may be gastritis or peptic ulcer disease -Chronic pancreatitis with normal lab values, history of previous pancreatitis flareup approximately 5 years ago -History of recent positive covid 19 infection and had been taking Paxlovid -Hypomagnesemia -Depression -GI prophylaxis -DVT prophylaxis -Full code Plan: Recommend continue with current pain regimen and pain management evaluated the patient and planning for possible celiac nerve block in the a.m. Continue diet and slowly advance as tolerated. Patient will be nothing by mouth at midnight Recommend to continue with anti-nausea medications as patient continues to report nausea although slightly improved Encouraged oral intake with small frequent meals. Patient reports she is eating more and tolerating Encouraged increase activity as tolerated Will follow-up with repeat labs Patient will need outpatient follow-up with GI as well as pain management with Possible discharge next 24-48 hours The impression and plan of care has been dictated by Nurse Cb Maria as directed. MD Mario I have performed a history and examination and MDM of this patient, discussed the same with the dictator, and agree with the dictator's assessment and plan a s written ,documented as a scribe. Based on total visit time, I have performed more than 50% of the visit. Objective - Vital Signs Vital signs: Vital Signs Temp 98.7 F 08/13/22 07:16 Pulse 72 08/13/22 07:16 Resp 16 08/13/22 07:16 BP 147/87 08/13/22 07:16 Pulse Ox 98 08/13/22 07:16 FiO2 Intake & Output 08/12/22 08/13/22 08/13/22 18:59 06:59 18:59 Intake Total 200 1520 Balance 200 1520 Intake: Intake, IV Titration 1200 Amount Sodium Chloride 0.9% 1, 1200 000 ml @ 100 mls/hr IV . Q10H [facility] Rx#:[id number] Oral 200 320 Other: Voiding Method Toilet # Voids 3 3 # Bowel Movements 1 - Labs CBC & Chem 7: 08/10/22 19:59 08/13/22 06:03 Labs: Abnormal Lab Results - Last 24 Hours (Table) 08/13/22 Range/Units 06:03 BUN 5.0 L (9.0-27.0) mg/dL BUN/Creatinine Ratio 7.14 L (12.00-20.00) Ratio
[2022-08-14] MEDS: tiZANidine 4 MG TAB PO SCH (07:22)
[2022-08-14] MEDS: LIPASE 20,000/PROTEASE 63,000/AMYLASE 84,000 PO SCH (07:22)
[2022-08-14] MEDS ORDERED: PANTOPRAZOLE 40 MG TABLET PO SCH (07:30)
[2022-08-14 09:13] VITALS: BP 134/76; PULSE 67; RESP 17; TEMP 98.3
== END 2022-08-14 13:22 | disposition home or self-care (01) | DRG 384 ==
LOC: EC 19:00 → 5NMEDONC 23:20 → OBSVTOIN 08-12 14:56 → 4SSUR 08-12 17:04
PROVIDERS: ADMIT Hospitalist; ATTEND Hospitalist
DX: K27.9 Peptic ulcer, site unspecified, unspecified as acute or chronic, without hemorrhage or perforation (principal); K86.1 Other chronic pancreatitis; K29.70 Gastritis, unspecified, without bleeding; I10 Essential (primary) hypertension; K58.9 Irritable bowel syndrome, unspecified; Z20.822 Contact with and (suspected) exposure to COVID-19; F32.A Depression, unspecified; E83.42 Hypomagnesemia; Z86.16 Personal history of COVID-19; Z87.11 Personal history of peptic ulcer disease; Z79.899 Other long term (current) drug therapy; Z90.49 Acquired absence of other specified parts of digestive tract; Z90.710 Acquired absence of both cervix and uterus; Z98.84 Bariatric surgery status; Z88.8 Allergy status to other drugs, medicaments and biological substances
CPT/HCPCS: 36415; 74177; 80048; 80053; 81003; 82150; 83605; 83690; 83735; 84484; 85025; 87635; 93005; 96374; 96375; 96376; 99285